=== PATIENT | male | born 1975 | race Caucasian/White ===

== ENCOUNTER 2017-12-24 18:03 | Emergency (ER) | payer OTHER ==
[2017-12-24 18:13] VITALS: BP 124/77
--- NOTE | 2017-12-24 18:45 | EDPHY ---
H & P Time Seen by Provider: 12/24/17 18:05 HPI/ROS: CHIEF COMPLAINT: Left calf pain HISTORY OF PRESENT ILLNESS: Patient states he was at an [employer] gym today and was trying to go up over a wall. As he ran up and leaped toward the top of the wall he felt a pop in his left calf and had immediate pain. He did not otherwise fall and denies any other injuries. He states that he is able to walk but it is painful to bend his ankle. He denies numbness or weakness. States the pain is posterior diffuse to the calf. REVIEW OF SYSTEMS: Negative except per HPI. General Appearance: Alert, no distress. Eyes: Pupils equal and round no icterus Respiratory: No respiratory distress Neurological: Awake, alert, no focal deficits. Skin: Warm and dry, no rashes. Musculoskeletal: Neck is supple nontender. Extremities are symmetrical, full range of motion, no edema. Tenderness to palpation in the posterior central/medial region of the calf muscles. Achilles tendon function intact. Distal circulation and sensation intact. No edema or ecchymosis noted. Psychiatric: Patient is oriented X 3, there is no agitation. Constitutional: Initial Vital Signs Temperature (C) 36.8 C 12/24/17 18:09 Heart Rate 57 L 12/24/17 18:09 Respiratory Rate 16 12/24/17 18:09 Blood Pressure 124/77 H 12/24/17 18:09 O2 Sat (%) 95 12/24/17 18:09 O2 Delivery Mode Room Air Allergies/Adverse Reactions: Penicillins Allergy (Verified 12/24/17 18:13) Home Medications: Medication Instructions Recorded Levothyroxine 12/24/17 Medical Decision Making Differential Diagnosis: Patient with calf injury after jumping on obstacle course wall. Findings consistent with plantaris tendon injury. No evidence of Achilles tendon rupture , fracture, contusion. Will place in a Franko boot. Discussed rest, ice, compression, elevation care. Recommended activity as tolerated and given orthopedic consultants name for follow-up as indicated. Departure - Departure Disposition: Home, Routine, Self-Care Clinical Impression: Injury of plantaris muscle or tendon Qualifiers: Encounter type: initial encounter Laterality: left Qualified Code(s): S89.92XA - Unspecified injury of left lower leg, initial encounter Condition: Good Instructions: Tendon Rupture (ED) Additional Instructions: Rest, ice, compression, elevation and used the"Diallo boot" as discussed. Activity as tolerated. Weightbearing is okay. Follow up with Orthopedics if not improving but symptoms may persist for up to 6 weeks until completely resolved. Referrals: [facility] [Other] - As per Instructions Dontrell Umaña MD [Medical Doctor] - As per Instructions
== END 2017-12-24 18:56 | disposition home or self-care (01) ==
LOC: EDBD 18:03 → CED 18:03
DX: S89.92XA Unspecified injury of left lower leg, initial encounter (principal); X58.XXXA Exposure to other specified factors, initial encounter; Y92.89 Other specified places as the place of occurrence of the external cause; Y99.8 Other external cause status; Y93.89 Activity, other specified
CPT/HCPCS: L4386